=== PATIENT | male | born 1965 | race Caucasian/White ===

== ENCOUNTER 2019-03-19 09:33 | Day surgery (SDC) | payer BC, OTHER ==
--- NOTE | 2019-03-07 17:39 | HP ---
HISTORY AND PHYSICAL: DATE OF SURGERY: 03/19/19 - [facility] DATE OF OFFICE VISIT: 03/07/19 SURGEON: Farideh Johnson MD * (DICTATED BY DWIGHT DOUGLAS) PROCEDURE: Right elbow olecranon bursectomy. CHIEF COMPLAINT: Right elbow. HISTORY OF PRESENT ILLNESS: Mr. Holt is a 53-year-old gentleman with a painful right elbow olecranon bursa. He is elected to have a bursectomy and it is scheduled for 03/19/19. PAST MEDICAL HISTORY: Depression. PAST SURGICAL HISTORY: 1. Kidney stone removal. 2. Tonsillectomy. CURRENT MEDICATIONS: 1. Valacyclovir 500 mg a day. 2. Paroxetine 50 mg a day. 3. Potassium 20 mEq daily. ALLERGIES: No known drug allergies. FAMILY HISTORY: Diabetes, coronary artery disease, stroke, and hypertension. SOCIAL HISTORY: He is a 53-year-old gentleman, who lives with his . He does not smoke or use drugs. REVIEW OF SYSTEMS: A complete 14-point review of systems was reviewed with the patient. It was all negative and noncontributory. He denies history of DVT, PE , hepatitis, HIV, or anesthesia problems. PHYSICAL EXAMINATION GENERAL: He is well developed, well nourished in no acute distress. He is alert and oriented x3, pleasant with appropriate affect. VITAL SIGNS: He stands 70 inches tall, weighs 155 pounds. Blood pressure is 120/72, his heart rate 74. PULMONARY: The lungs are clear to auscultation bilaterally. CARDIO: Regular rate and rhythm. ABDOMEN: Soft, nontender, nondistended. MUSCULOSKELETAL: Right upper extremity: Skin is intact. There are no open wounds or abrasions. There is thin and large right elbow bursa without any concern for infection. No erythema or warmth. He has full range of motion of the right elbow. He has 2+ distal pulse. Intact sensation. ASSESSMENT AND PLAN: Mr. Holt is a 53-year-old gentleman with a painful right elbow and enlarged olecranon bursa. He is elected to have an open olecranon bursectomy which is scheduled for 03/19/[address] Johnson discussed the risks and benefits of the surgery at today's visit and all of his questions were answered. He will follow with Dr. Johnson in 7 to 10 days following the surgery. DWIGHT DOUGLAS [id number]/[facility] #: [id number] [facility]
[~2019-03-19 09:33] MED LIST: Buffered Lidocaine 1% SYRIN* 1 ML/SYRINGE INTRADERM ONE; Dexamethasone IV* 4 MG/ML 1 ML (4 MG) IV SLOW PU ONE; Famotidine IV* 10 MG/ML 2 ML (20 mg) IV ONE; Lactated Ringers 1000 ML Bag* 1,000 ML IV SCH
[2019-03-19] MEDS ORDERED: Famotidine IV* 10 MG/ML 2 ML (20 mg) ONE (09:55)
[2019-03-19] MEDS ORDERED: Dexamethasone IV* 4 MG/ML 1 ML (4 MG) ONE (09:55)
[2019-03-19] MEDS ORDERED: Propofol* 10 MG/ML 20 ML BTL ONE (10:01)
[2019-03-19] MEDS ORDERED: Lidocaine 2% PF * 5 ML VIAL ONE (10:01)
[2019-03-19] MEDS ORDERED: fentaNYL* 50 MCG/ML 2 ML VIAL (100 MCG VIAL) ONE (10:02)
[2019-03-19] MEDS ORDERED: Bupivacaine 0.5% SDV PF* 30ML VIAL ONE (10:23)
[2019-03-19] MEDS ORDERED: Ketorolac INJ* 30 MG/ML 1 ML VIAL ONE (10:59)
[2019-03-19] MEDS ORDERED: Ondansetron INJ* 2 MG/ML VIAL ONE (10:59)
[2019-03-19 13:39] VITALS: BP 113/83
--- NOTE | 2019-03-19 18:27 | OP ---
DATE OF OPERATION: 03/19/19 [facility] DATE OF : 63 SURGEON: Farideh Johnson MD BEATER HEAD: DWIGHT Everett ANESTHESIA: General. PRE-OP DIAGNOSES: Right elbow olecranon bursitis and olecranon spur. POST-OP DIAGNOSES: Right elbow olecranon bursitis and olecranon spur. OPERATIVE PROCEDURE: Right elbow olecranon bursectomy and removal of bone spur. ESTIMATED BLOOD LOSS: Zero. TOURNIQUET TIME: About 30 minutes. INDICATION FOR PROCEDURE: Bob is a 53-year-old man who has painful bursitis of the right olecranon. He has a small bone spur visible on x-ray. He presents for removal of both. DESCRIPTION OF PROCEDURE: The patient was brought to the operating room and was given a general anesthetic and placed in the supine position on the operating table. Tourniquet was placed around his right upper arm. Skin of his right upper extremity was prepped and draped in the usual sterile fashion. The upper extremity was exsanguinated and the tourniquet elevated to 250 mmHg. A longitudinal incision was made just lateral to the posterior aspect of the olecranon. We dissected through the subcutaneous tissue. The bursa was carefully dissected away from the skin and the underlying triceps tendon and olecranon process and sent for pathology. There was a small osteophyte and this was removed also after a longitudinal split in the fibers of the triceps tendon. The wound was copiously irrigated with saline. The triceps tendon was repaired with 0 Vicryl suture. The subcutaneous tissue was closed with 3-0 Vicryl and the skin with skin kassi. The wound was dressed with Xeroform, 4x4 , Webril, and an Tr wrap. The patient tolerated the procedure well and was brought to the recovery room in good condition. [id number]/[facility] #: [id number] [facility]
== END 2019-03-19 12:41 | disposition home or self-care (01) ==
LOC: OREAST 09:33
PROVIDERS: ATTEND Orthopaedic Surgery
DX: M70.21 Olecranon bursitis, right elbow (principal); Z87.442 Personal history of urinary calculi; F32.9 Major depressive disorder, single episode, unspecified
CPT/HCPCS: 88304; J1100; J1885; J2405; J2704; J3010; J3490